=== PATIENT | female | born 1995 | race Caucasian/White ===

== ENCOUNTER 2017-03-14 22:29 | Emergency (ER) | payer OTHER ==
[~2017-03-14] VITALS: Ht 177.8 cm; Wt 59.9 kg
--- NOTE | 2017-03-14 22:30 | NUR ---
PT BIB MOTHER, C/O MID EPIGASTIC BURNING PAIN S/P EATING. PT AMBULATED TO BED WITH STEADY GAIT. VS WNL. AWAITING MD ORDERS.
[2017-03-14] MEDS ORDERED: MAG HYDROX/AL HYDROX/SIMETH 30 ML UDC PO ONE (23:00)
[2017-03-14] MEDS ORDERED: LIDOCAINE VISCOUS 2% UD 15 ML UDC MM ONE (23:00)
[2017-03-14] MEDS ORDERED: LIDOCAINE VISCOUS 2% UD 15 ML UDC ONE (23:12)
[2017-03-14] MEDS ORDERED: MAG HYDROX/AL HYDROX/SIMETH 30 ML UDC ONE (23:13)
[2017-03-14] MEDS ORDERED: ONDANSETRON 4 MG TAB.RAPDIS ONE (23:50)
[2017-03-14 23:59] VITALS: BP 120/75
[2017-03-15] MEDS ORDERED: ONDANSETRON 4 MG TAB.RAPDIS SL ONE
--- NOTE | 2017-03-15 00:01 | NUR ---
Patient discharged to home in stable condition. Written and verbal after care instructions given. Patient verbalizes understanding of instruction. pt. ambulatory with a steady gait
== END 2017-03-15 | disposition home or self-care (01) ==
LOC: ER 22:33
DX: K21.9 Gastro-esophageal reflux disease without esophagitis (principal)
CPT/HCPCS: 99283; A4606 ×2; Q0162; Z7610 ×2

== ENCOUNTER 2017-03-15 06:42 | Emergency (ER) | payer OTHER ==
[~2017-03-15] VITALS: Ht 177.8 cm; Wt 59.0 kg
--- NOTE | 2017-03-15 06:55 | NUR ---
BIBSELF, C/O SORE THROAT X 3 DAYS. BACK PAIN SINCE 2 AM. "GLF X 2 WKS AGO" . PT AMBULATED TO BED. PT VS WNL. AWAITING MD ORDERS.
--- NOTE | 2017-03-15 07:09 | NUR ---
/ [facility] AT BEDSIDE FOR EVAL.
[2017-03-15] MEDS ORDERED: KETOROLAC TROMETHAMINE INJ 30 MG/ML VIAL ONE (07:28)
[2017-03-15] MEDS ORDERED: FAMOTIDINE/PF INJ 20 MG/2 ML VIAL IV ONE ×2 (07:28→07:30)
[2017-03-15] MEDS ORDERED: ONDANSETRON HCL/PF 4 MG/2 ML VIAL ONE (07:28)
[2017-03-15] MEDS ORDERED: ONDANSETRON HCL/PF 4 MG/2 ML VIAL IVP ONE (07:30)
[2017-03-15] MEDS ORDERED: KETOROLAC TROMETHAMINE INJ 30 MG/ML VIAL IV ONE (07:30)
[2017-03-15] MEDS ORDERED: IV NS 0.9% 1,000 ML BAG IV ONE (07:30)
[2017-03-15 07:48] LABS: BASOPHILS % (AUTO) 0.1 % (0.0-2.0); HEMATOCRIT 44 % (33-45); HEMOGLOBIN 14.1 g/dL (11.5-14.8); LYMPHOCYTES # (AUTO) 0.3 /CMM (0.8-4.8); LYMPHOCYTES % (AUTO) 3.3 % (20.0-44.0); MEAN CORPUSCULAR HEMOGLOBIN 28 PG (26.0-33.0); MEAN CORPUSCULAR HGB CONC 32 g/dl (31.0-36.0); MEAN CORPUSCULAR VOLUME 87 fL (82-100); MONOCYTES # (AUTO) 0.5 /CMM (0.1-1.30); MONOCYTES % (AUTO) 4.6 % (2.0-12.0); NEUTROPHILS # (AUTO) 9.3 /CMM (1.8-8.9); PLATELET COUNT (AUTO) 310 /CMM (150-450); RDW COEFFICIENT OF VARIATION 13.3 (11.5-15.0); RED BLOOD CELL COUNT(AUTO) 5.02 MIL/uL (4.0-5.2); WHITE BLOOD COUNT (AUTO) 10.1 K/uL (4.3-11.0)
[2017-03-15 08:00] LABS: CALCIUM, SERUM 9.4 mg/dL (8.5-10.1); CREATININE 0.8 mg/dL (0.6-1.3); POTASSIUM 3.8 mmol/L (3.5-5.1)
[2017-03-15 08:06] LABS: ALBUMIN 4.2 g/dL (3.4-5.0); BILIRUBIN,DIRECT 0.1 mg/dL (0.0-0.2); BILIRUBIN,TOTAL 0.7 mg/dL (0.2-1.0); TOTAL PROTEIN, SERUM 8.4 g/dL (6.4-8.2)
[2017-03-15 08:41] VITALS: BP 112/58
== END 2017-03-15 08:58 | disposition home or self-care (01) ==
LOC: ER 06:43
DX: J02.9 Acute pharyngitis, unspecified (principal); N94.6 Dysmenorrhea, unspecified; R11.2 Nausea with vomiting, unspecified
CPT/HCPCS: 36415; 80048; 80076; 83690; 84703; 85025; 87070; 87880; 96361; 96374; 96375; 99284; A4606; J1885; J2405; J3490; J7030; Z7610; 86403-TC